=== PATIENT | male | born 1985 | race African-American/Black ===

== ENCOUNTER 2021-06-30 09:10 | Emergency (ER) | payer OTHER ==
[~2021-06-30] VITALS: Ht 167.6 cm; Wt 51.3 kg
[2021-06-30 09:17] VITALS: BP 138/107
--- NOTE | 2021-06-30 09:33 | NUR ---
Patient came in to the er c/o "Cant eat/Bad Anxiety/losing weight/No appetite/Nausea/Urine problems used to smoke marijuana but stopped about 1wk ago because having all these". on room air, breathing evenly and unlabored. connected to the monitor adn pulse ox.kept comfortable, will continue to monitor accordingly.
--- NOTE | 2021-06-30 09:43 | NUR ---
urine collected and sent to lab.
[2021-06-30 10:22] LABS: BASOPHILS # (AUTO) 0.1 K/uL (0.0-0.2); BASOPHILS % (AUTO) 0.9 % (0.0-2.0); EOSINOPHILS % (AUTO) 3.3 % (0.0-6.0); HEMATOCRIT 48 % (39-51); HEMOGLOBIN 15.9 g/dL (13.5-17.5); LYMPHOCYTES # (AUTO) 1.5 K/uL (0.8-4.8); LYMPHOCYTES % (AUTO) 24.9 % (20.0-44.0); MEAN CORPUSCULAR HGB CONC 33 g/dl (31.0-36.0); MEAN CORPUSCULAR VOLUME 90 fL (80-96); MONOCYTES # (AUTO) 0.9 K/uL (0.1-1.30); NEUTROPHILS # (AUTO) 3.2 K/uL (1.8-8.9); NEUTROPHILS % (AUTO) 54.9 % (43.0-81.0); PLATELET COUNT (AUTO) 226 K/uL (150-450); RED BLOOD CELL COUNT(AUTO) 5.31 MIL/uL (4.5-6.0); WHITE BLOOD COUNT (AUTO) 5.8 K/uL (4.3-11.0)
[2021-06-30 10:28] LABS: CALCIUM, SERUM 9.4 mg/dL (8.5-10.1); POTASSIUM 4.8 mmol/L (3.5-5.1)
[2021-06-30 10:30] LABS: BILIRUBIN,URINE SMALL (NEGATIVE); COLOR,URINE YELLOW (YELLOW); LEUKOCYTE ESTERASE ,URINE Negative (NEGATIVE); NITRITE, URINE Negative (NEGATIVE); PH,URINE 5.5 (5.0-8.0); PROTEIN,URINE Negative (NEGATIVE); UGLUCOSE Negative (NEGATIVE); UROBILINOGEN,URINE 0.2 EU/dL (0.2)
[2021-06-30 10:34] LABS: ALBUMIN 4.1 g/dL (3.4-5.0); BILIRUBIN,DIRECT 0.1 mg/dL (0.0-0.2); BILIRUBIN,TOTAL 0.6 mg/dL (0.2-1.0); TOTAL PROTEIN, SERUM 8.2 g/dL (6.4-8.2)
[2021-06-30 10:50] LABS: BACTERIA,URINE Few /HPF (None Seen); RBC,URINE 0-2 /HPF (0-2); WBC,URINE 0-4 /HPF (0-3)
[2021-06-30 10:51] LABS: MUCUS,URINE Moderate /LPF (None Seen); SQUAMOUS EPITHELIAL CELL,UR Rare /HPF (None Seen)
--- NOTE | 2021-06-30 10:55 | NUR ---
Patient discharged to home in stable condition. Written and verbal after care instructions given. Patient verbalizes understanding of instruction.
== END 2021-06-30 10:55 | disposition home or self-care (01) ==
LOC: ER 09:18
DX: R11.2 Nausea with vomiting, unspecified (principal); R19.7 Diarrhea, unspecified
CPT/HCPCS: 36415; 80048-TC; 80076-TC; 81001; 83690-TC; 85025-TC; 87086-TC

== ENCOUNTER 2021-07-29 03:53 | Emergency (ER) | payer OTHER ==
[~2021-07-29] VITALS: Ht 167.6 cm; Wt 60.8 kg
[2021-07-29] MEDS ORDERED: LIDOCAINE 1%-EPI 1:100,000 20 ML VIAL ONE (04:01)
--- NOTE | 2021-07-29 04:04 | NUR ---
BIBSELF C/O LACERATION ON L EYEBROW. EDGES WELL APPROXIMATED. UPDATED TDAP ALL VITALS STABLE. MD WAS AT BEDSIDE FOR EVALUATION.
--- NOTE | 2021-07-29 04:26 | NUR ---
Patient discharged to home in stable condition. Written and verbal after care instructions given. Patient verbalizes understanding of instruction.
[2021-07-29 04:30] VITALS: BP 122/73
== END 2021-07-29 04:30 | disposition home or self-care (01) ==
LOC: ER 03:53
DX: S01.112A Laceration without foreign body of left eyelid and periocular area, initial encounter (principal); Y08.89XA Assault by other specified means, initial encounter; Y93.89 Activity, other specified; Y92.29 Other specified public building as the place of occurrence of the external cause; Y99.8 Other external cause status
CPT/HCPCS: 12011; 99282; J3490

== ENCOUNTER 2021-08-28 03:59 | Emergency (ER) | payer OTHER ==
[~2021-08-28] VITALS: Ht 170.2 cm; Wt 53.5 kg
--- NOTE | 2021-08-28 04:26 | NUR ---
pt came in c/o vomiting and nausea, pt placed on monitor,vss.
[2021-08-28 05:53] LABS: BASOPHILS % (AUTO) 0.6 % (0.0-2.0); HEMATOCRIT 45 % (39-51); HEMOGLOBIN 15.3 g/dL (13.5-17.5); LYMPHOCYTES # (AUTO) 1.8 K/uL (0.8-4.8); LYMPHOCYTES % (AUTO) 22.7 % (20.0-44.0); MEAN CORPUSCULAR HGB CONC 34 g/dl (31.0-36.0); MEAN CORPUSCULAR VOLUME 91 fL (80-96); MONOCYTES # (AUTO) 1.3 K/uL (0.1-1.30); NEUTROPHILS # (AUTO) 4.4 K/uL (1.8-8.9); NEUTROPHILS % (AUTO) 55.7 % (43.0-81.0); PLATELET COUNT (AUTO) 248 K/uL (150-450); RED BLOOD CELL COUNT(AUTO) 4.95 MIL/uL (4.5-6.0); WHITE BLOOD COUNT (AUTO) 7.9 K/uL (4.3-11.0)
[2021-08-28 06:00] LABS: BILIRUBIN,URINE NEGATIVE (NEGATIVE); COLOR,URINE YELLOW (YELLOW); LEUKOCYTE ESTERASE ,URINE NEGATIVE (NEGATIVE); NITRITE, URINE NEGATIVE (NEGATIVE); PROTEIN,URINE NEGATIVE (NEGATIVE); UGLUCOSE NEGATIVE (NEGATIVE); UROBILINOGEN,URINE 0.2 EU/dL (0.2)
[2021-08-28 06:01] LABS: CALCIUM, SERUM 9.1 mg/dL (8.5-10.1); POTASSIUM 4.6 mmol/L (3.5-5.1)
[2021-08-28 06:08] LABS: ALBUMIN 3.8 g/dL (3.4-5.0); BILIRUBIN,DIRECT 0.1 mg/dL (0.0-0.2); BILIRUBIN,TOTAL 0.5 mg/dL (0.2-1.0); TOTAL PROTEIN, SERUM 7.8 g/dL (6.4-8.2)
[2021-08-28] MEDS ORDERED: ONDANSETRON HCL/PF 4 MG/2 ML VIAL ONE (06:28)
[2021-08-28] MEDS ORDERED: IV NS 0.9% 1,000 ML BAG IV ONE (06:30)
[2021-08-28] MEDS ORDERED: ONDANSETRON HCL/PF - ER 4 MG/2 ML VIAL IV ONE (06:30)
--- NOTE | 2021-08-28 07:21 | NUR ---
ASSESSED PT ON BED AWAKE AND ALERT, NOT IN RESPIRATORY DISTRESS, V/S STABLE, KEPT RESTED AND COMFORTABLE. WILL CONTINUE TO MONITOR.
[2021-08-28] MEDS ORDERED: ONDA4TAB5 PO (08:10)
--- NOTE | 2021-08-28 08:15 | NUR ---
IV removed. Catheter intact and site benign. Pressure and 4x4 applied to site. No bleeding noted.
--- NOTE | 2021-08-28 08:15 | NUR ---
Patient discharged to home in stable condition. Written and verbal after care instructions given. Patient verbalizes understanding of instruction.
[2021-08-28 08:25] VITALS: BP 126/64
[2021-08-28 08:59] LABS: BAND % (MANUAL) 1 % (0.0-5.0); EOSINOPHILS % (MANUAL) 5 % (0-4); LYMPHOCYTES % (MANUAL) 22 % (16-48); MONOCYTES % (MANUAL) 13 % (0-11.0); NEUTROPHILS % (MANUAL) 59 (42-76)
== END 2021-08-28 08:17 | disposition home or self-care (01) ==
LOC: ER 04:00
DX: B34.9 Viral infection, unspecified (principal); R11.2 Nausea with vomiting, unspecified; Z20.822 Contact with and (suspected) exposure to COVID-19; Z82.49 Family history of ischemic heart disease and other diseases of the circulatory system; Z88.0 Allergy status to penicillin
CPT/HCPCS: 36415; 71045; 80048; 80076; 81003; 83690; 85007; 85025; 87426; 96361; 96374; 99285; C9803; J2405; J7030; U0003

== ENCOUNTER → 2021-09-23 | Emergency (ER) | payer OTHER ==
[~2021-09-23] VITALS: Ht 167.6 cm; Wt 54.4 kg
[~2021-09-23] MED LIST: ALBUTEROL FS 2.5 MG/0.5 ML VIAL.NEB ONE; AZIT250T13 PO; IOHEXOL-300 100 ML VIAL IV ONE; IV NS 0.9% 250 ML IV ONE; ONDA4TAB5 PO
[2021-09-23] MEDS: ALBUTEROL FS 2.5 MG/0.5 ML VIAL.NEB NEB ONE (02:39)
[2021-09-23 04:19] LABS: BASOPHILS % (AUTO) 0.4 % (0.0-2.0); EOSINOPHILS % (AUTO) 2.6 % (0.0-6.0); HEMATOCRIT 44 % (39-51); HEMOGLOBIN 14.8 g/dL (13.5-17.5); LYMPHOCYTES # (AUTO) 1.7 K/uL (0.8-4.8); MEAN CORPUSCULAR HGB CONC 34 g/dl (31.0-36.0); MEAN CORPUSCULAR VOLUME 92 fL (80-96); MONOCYTES # (AUTO) 1.4 K/uL (0.1-1.30); MONOCYTES % (AUTO) 18.1 % (2.0-12.0); NEUTROPHILS # (AUTO) 4.4 K/uL (1.8-8.9); NEUTROPHILS % (AUTO) 56.9 % (43.0-81.0); PLATELET COUNT (AUTO) 247 K/uL (150-450); RED BLOOD CELL COUNT(AUTO) 4.72 MIL/uL (4.5-6.0); WHITE BLOOD COUNT (AUTO) 7.7 K/uL (4.3-11.0)
[2021-09-23 05:01] LABS: ALBUMIN 3.8 g/dL (3.4-5.0); BILIRUBIN,TOTAL 0.4 mg/dL (0.2-1.0); CALCIUM, SERUM 9.5 mg/dL (8.5-10.1); POTASSIUM 3.3 mmol/L (3.5-5.1); TOTAL PROTEIN, SERUM 7.8 g/dL (6.4-8.2)
[2021-09-23 05:42] VITALS: BP 109/80
[2021-09-23 06:35] LABS: BAND % (MANUAL) 2 % (0.0-5.0); EOSINOPHILS % (MANUAL) 2 % (0-4); LYMPHOCYTES % (MANUAL) 24 % (16-48); MONOCYTES % (MANUAL) 12 % (0-11.0); NEUTROPHILS % (MANUAL) 60 (42-76)
== END | disposition home or self-care (01) ==
LOC: ER 01:51
DX: J12.9 Viral pneumonia, unspecified (principal); R59.0 Localized enlarged lymph nodes; Z88.0 Allergy status to penicillin
CPT/HCPCS: 36415; 71045-TC; 71260-TC; 80053-TC; 85025-TC; J7050; Q9967

== ENCOUNTER 2021-11-01 12:50 | Emergency (ER) | payer OTHER ==
[~2021-11-01] VITALS: Ht 167.6 cm; Wt 55.3 kg
[~2021-11-01 12:50] MED LIST changes: -ALBUTEROL FS 2.5 MG/0.5 ML VIAL.NEB ONE; -IOHEXOL-300 100 ML VIAL IV ONE; -IV NS 0.9% 250 ML IV ONE
--- NOTE | 2021-11-01 13:01 | NUR ---
BIBS C/O COUGH X 2 WEEKS. VITALS ARE WITHIN NORMAL LIMITS.
[2021-11-01] MEDS ORDERED: AZIT250T PO (14:04)
[2021-11-01] MEDS ORDERED: GUAI-671 PO (14:04)
--- NOTE | 2021-11-01 14:38 | NUR ---
Patient discharged to home in stable condition. Written and verbal after care instructions given. Patient verbalizes understanding of instruction.
[2021-11-01 15:22] VITALS: BP 112/71
== END 2021-11-01 15:23 | disposition home or self-care (01) ==
LOC: ER 13:15
DX: J20.9 Acute bronchitis, unspecified (principal); F17.200 Nicotine dependence, unspecified, uncomplicated; Z88.0 Allergy status to penicillin; Z79.810 Long term (current) use of selective estrogen receptor modulators (SERMs); Z79.899 Other long term (current) drug therapy
CPT/HCPCS: 71045-TC

== ENCOUNTER 2022-03-21 18:14 | Emergency (ER) | payer OTHER ==
[~2022-03-21] VITALS: Ht 167.6 cm; Wt 55.3 kg
[~2022-03-21 18:14] MED LIST changes: +AZIT250T PO; +GUAI-671 PO
--- NOTE | 2022-03-21 18:31 | NUR ---
BIBS C/O DIZZINESS AND HEADACHE X1MO WORST TODAY. TO ER BED 10, HOOKED TO MONITOR, CHANGED TO HOSP GOWN, WARM BLANKET PROVIDED. PATIENT AAO x 4. BREATHING EVEN AND UNLABORED. AWAITING MD MCKEON
--- NOTE | 2022-03-21 18:32 | NUR ---
DR POOL AT BEDSIDE
[2022-03-21 19:23] LABS: POTASSIUM 3.8 mmol/L (3.5-5.1)
--- NOTE | 2022-03-21 19:40 | NUR ---
REPORT GIVEN TO AGNIESZKA BEYER FOR FREDDY
[2022-03-21 20:01] LABS: BASOPHILS % (AUTO) 0.2 % (0.0-2.0); EOSINOPHILS % (AUTO) 2.2 % (0.0-6.0); HEMATOCRIT 45 % (39-51); HEMOGLOBIN 14.9 g/dL (13.5-17.5); LYMPHOCYTES # (AUTO) 1.1 K/uL (0.8-4.8); LYMPHOCYTES % (AUTO) 18.5 % (20.0-44.0); MEAN CORPUSCULAR HGB CONC 33 g/dl (31.0-36.0); MEAN CORPUSCULAR VOLUME 89 fL (80-96); MONOCYTES % (AUTO) 16.2 % (2.0-12.0); NEUTROPHILS # (AUTO) 3.9 K/uL (1.8-8.9); NEUTROPHILS % (AUTO) 62.9 % (43.0-81.0); PLATELET COUNT (AUTO) 246 K/uL (150-450); RED BLOOD CELL COUNT(AUTO) 5.04 MIL/uL (4.5-6.0); WHITE BLOOD COUNT (AUTO) 6.2 K/uL (4.3-11.0)
--- NOTE | 2022-03-21 21:04 | NUR ---
Patient discharged to home in stable condition. Written and verbal after care instructions given. Patient verbalizes understanding of instruction.
[2022-03-21 21:05] VITALS: BP 129/94
== END 2022-03-21 21:05 | disposition home or self-care (01) ==
LOC: ER 18:30
DX: R51.9 Headache, unspecified (principal); Z88.0 Allergy status to penicillin; Z79.899 Other long term (current) drug therapy
CPT/HCPCS: 36415; 70450-TC; 80048-TC; 85025-TC

== ENCOUNTER 2022-07-23 15:42 | Emergency (ER) | payer OTHER ==
[~2022-07-23] VITALS: Ht 182.9 cm; Wt 56.7 kg
[2022-07-23] MEDS ORDERED: AZIT250T13 PO (19:53)
[2022-07-23] MEDS ORDERED: GUAI5LIQ10 PO (21:15)
[2022-07-23] MEDS ORDERED: CARB15DR12 LEFT EAR (21:15)
--- NOTE | 2022-07-23 21:18 | NUR ---
Patient discharged to home in stable condition. Written and verbal after care instructions given. Patient verbalizes understanding of instruction.
[2022-07-23 21:19] VITALS: BP 131/70
== END 2022-07-23 21:19 | disposition home or self-care (01) ==
LOC: ER 15:42
DX: J18.8 Other pneumonia, unspecified organism (principal); H61.23 Impacted cerumen, bilateral; F17.200 Nicotine dependence, unspecified, uncomplicated; Z88.0 Allergy status to penicillin; Z79.899 Other long term (current) drug therapy
CPT/HCPCS: 71045-TC

== ENCOUNTER 2022-09-01 13:47 | Emergency (ER) | payer MEDICAID, OTHER ==
[~2022-09-01] VITALS: Ht 170.2 cm; Wt 56.7 kg
[~2022-09-01 13:47] MED LIST changes: +CARB15DR12 LEFT EAR; +GUAI5LIQ10 PO
--- NOTE | 2022-09-01 15:31 | NUR ---
TO ER BED 2, BIBS C/O ABDOMINAL PAIN X1WEEK, DIARRHEA, DENIES NAUSEA AND VOMITING, AAOX3, BREATHING EVEN AND NON LABORED, CONNECTED TO MONITOR
[2022-09-01 16:15] LABS: BASOPHILS % (AUTO) 0.1 % (0.0-2.0); EOSINOPHILS % (AUTO) 2.7 % (0.0-6.0); HEMATOCRIT 45 % (39-51); HEMOGLOBIN 15.3 g/dL (13.5-17.5); LYMPHOCYTES # (AUTO) 0.7 K/uL (0.8-4.8); LYMPHOCYTES % (AUTO) 14.4 % (20.0-44.0); MEAN CORPUSCULAR HGB CONC 34 g/dl (31.0-36.0); MEAN CORPUSCULAR VOLUME 90 fL (80-96); MONOCYTES % (AUTO) 20.3 % (2.0-12.0); NEUTROPHILS % (AUTO) 62.5 % (43.0-81.0); PLATELET COUNT (AUTO) 258 K/uL (150-450); RED BLOOD CELL COUNT(AUTO) 5.06 MIL/uL (4.5-6.0); WHITE BLOOD COUNT (AUTO) 4.8 K/uL (4.3-11.0)
[2022-09-01 16:23] LABS: BILIRUBIN,URINE NEGATIVE (NEGATIVE); COLOR,URINE YELLOW (YELLOW); LEUKOCYTE ESTERASE ,URINE NEGATIVE (NEGATIVE); NITRITE, URINE NEGATIVE (NEGATIVE); PH,URINE 7.5 (5.0-8.0); PROTEIN,URINE 1+ mg/dl (NEGATIVE); UGLUCOSE NEGATIVE (NEGATIVE)
[2022-09-01 16:36] LABS: ALBUMIN 3.6 g/dL (3.4-5.0); BILIRUBIN,DIRECT 0.1 mg/dL (0.0-0.2); BILIRUBIN,TOTAL 0.6 mg/dL (0.2-1.0); TOTAL PROTEIN, SERUM 8.1 g/dL (6.4-8.2)
[2022-09-01] MEDS: IV NS 0.9% 500 ML BAG IV ONE (16:50)
--- NOTE | 2022-09-01 16:51 | NUR ---
COVID AND FLU SWABS DONE AND SENT TO LAB
[2022-09-01 17:46] LABS: BACTERIA,URINE None seen /HPF (None Seen); RBC,URINE 0-2 /HPF (0-2); SQUAMOUS EPITHELIAL CELL,UR 0-2 /HPF (None Seen); URINE AMORPHOUS PHOSPHATES Moderate /HPF (None Seen); WBC,URINE 0-2 /HPF (0-3)
[2022-09-01] MEDS ORDERED: NAPR-1192 PO (18:34)
--- NOTE | 2022-09-01 18:48 | NUR ---
IV removed. Catheter intact and site benign. Pressure and 4x4 applied to site. No bleeding noted.Patient discharged to home in stable condition. Written and verbal after care instructions given. Patient verbalizes understanding of instruction.
[2022-09-01 18:50] VITALS: BP 132/84
[2022-09-01 19:56] LABS: BAND % (MANUAL) 1 % (0.0-5.0); EOSINOPHILS % (MANUAL) 2 % (0-4); LYMPHOCYTES % (MANUAL) 17 % (16-48); MONOCYTES % (MANUAL) 13 % (0-11.0); NEUTROPHILS % (MANUAL) 66 (42-76); REACTIVE LYMPHOCYTES 1 % (0-0)
== END 2022-09-01 18:51 | disposition home or self-care (01) ==
LOC: ER 13:47
DX: R10.9 Unspecified abdominal pain (principal); R07.89 Other chest pain; Z87.01 Personal history of pneumonia (recurrent); Z20.822 Contact with and (suspected) exposure to COVID-19; Z88.0 Allergy status to penicillin
CPT/HCPCS: 99285; 74176; 96360; 71045; 87426; 93005; 87804; 85025; 80048; 83605; 83690; 80076; 81001; 36415; 85007; J7040; C9803

== ENCOUNTER 2022-12-05 06:39 | Emergency (ER) | payer MEDICAID, OTHER ==
[~2022-12-05] VITALS: Ht 167.6 cm; Wt 59.0 kg
[~2022-12-05 06:39] MED LIST changes: +NAPR-1192 PO
--- NOTE | 2022-12-05 06:50 | NUR ---
PT BIBSELF C/O LLQ PAIN X 6 HOURS. PT AAOX4 BREATHING EVENLY AND UNLABORED. PT REPORTS DRINKING LAST NIGHT AND THEN THE "PAIN SUDDENLY HIT HIM". PT ATTACHED TO MONITOR AND POX. WILL CONTINUE TO MONITOR.
--- NOTE | 2022-12-05 06:51 | NUR ---
URINE COLLECTED AND SENT TO LAB
[2022-12-05] MEDS ORDERED: ONDANSETRON HCL/PF 4 MG/2 ML VIAL ONE (06:54)
[2022-12-05] MEDS ORDERED: MORPHINE SULFATE INJ 4 MG/ML DISP.SYRIN ONE (06:54)
--- NOTE | 2022-12-05 06:54 | NUR ---
PT TAKEN TO CT VIA DOC
[2022-12-05] MEDS ORDERED: MORPHINE SULFATE INJ 2 MG/ML DISP.SYRIN IV ONE (07:00)
[2022-12-05] MEDS ORDERED: IV NS 0.9% 1,000 ML BAG IV ONE (07:00)
[2022-12-05] MEDS ORDERED: ONDANSETRON HCL/PF 4 MG/2 ML VIAL IVP ONE (07:00)
--- NOTE | 2022-12-05 07:03 | NUR ---
PT RETURNED TO ER BED [address]
[2022-12-05] MEDS ORDERED: KETOROLAC TROMETHAMINE INJ 30 MG/ML VIAL ONE (07:33)
[2022-12-05 07:34] LABS: BASOPHILS % (AUTO) 0.5 % (0.0-2.0); EOSINOPHILS % (AUTO) 1.3 % (0.0-6.0); HEMATOCRIT 48 % (39-51); HEMOGLOBIN 15.9 g/dL (13.5-17.5); LYMPHOCYTES # (AUTO) 0.8 K/uL (0.8-4.8); LYMPHOCYTES % (AUTO) 21.4 % (20.0-44.0); MEAN CORPUSCULAR HGB CONC 33 g/dl (31.0-36.0); MEAN CORPUSCULAR VOLUME 91 fL (80-96); MONOCYTES # (AUTO) 0.5 K/uL (0.1-1.30); MONOCYTES % (AUTO) 13.2 % (2.0-12.0); NEUTROPHILS # (AUTO) 2.5 K/uL (1.8-8.9); NEUTROPHILS % (AUTO) 63.6 % (43.0-81.0); PLATELET COUNT (AUTO) 225 K/uL (150-450); RED BLOOD CELL COUNT(AUTO) 5.23 MIL/uL (4.5-6.0); WHITE BLOOD COUNT (AUTO) 3.9 K/uL (4.3-11.0)
[2022-12-05 08:00] LABS: BILIRUBIN,DIRECT 0.2 mg/dL (0.0-0.2); BILIRUBIN,TOTAL 0.6 mg/dL (0.2-1.0); CALCIUM, SERUM 8.8 mg/dL (8.5-10.1); POTASSIUM 3.6 mmol/L (3.5-5.1); TOTAL PROTEIN, SERUM 8.6 g/dL (6.4-8.2)
[2022-12-05] MEDS ORDERED: KETOROLAC TROMETHAMINE INJ 30 MG/ML VIAL IV ONE (08:00)
[2022-12-05] MEDS ORDERED: HYDROMORPHONE 1 MG/1 ML DISP.SYRIN ONE (08:14)
--- NOTE | 2022-12-05 08:20 | NUR ---
pt medicated as ordered. see emar.
[2022-12-05 08:22] LABS: BILIRUBIN,URINE 1+ (NEGATIVE); COLOR,URINE DARK YELLOW (YELLOW); LEUKOCYTE ESTERASE ,URINE NEGATIVE (NEGATIVE); NITRITE, URINE NEGATIVE (NEGATIVE); PROTEIN,URINE 1+ mg/dl (NEGATIVE); UGLUCOSE NEGATIVE (NEGATIVE); UROBILINOGEN,URINE 0.2 EU/dL (0.2)
[2022-12-05 08:29] LABS: BACTERIA,URINE None seen /HPF (None Seen); RBC,URINE 51-80 /HPF (0-2); WBC,URINE 0-2 /HPF (0-3)
[2022-12-05 08:30] LABS: SQUAMOUS EPITHELIAL CELL,UR None Seen /HPF (None Seen)
[2022-12-05] MEDS ORDERED: HYDROMORPHONE 1 MG/1 ML DISP.SYRIN IV ONE (08:30)
--- NOTE | 2022-12-05 08:35 | NUR ---
pt to radiology for ct chest via [facility].
[2022-12-05] MEDS ORDERED: HYDR-4209 PO (10:00)
[2022-12-05] MEDS ORDERED: IBUP-1955 PO (10:00)
[2022-12-05] MEDS ORDERED: TAMS-12 PO (10:00)
[2022-12-05 10:15] VITALS: BP 132/74
== END 2022-12-05 10:15 | disposition home or self-care (01) ==
LOC: ER 06:43
DX: N23 Unspecified renal colic (principal); F17.200 Nicotine dependence, unspecified, uncomplicated; R91.1 Solitary pulmonary nodule; R59.0 Localized enlarged lymph nodes; Z79.899 Other long term (current) drug therapy; Z20.822 Contact with and (suspected) exposure to COVID-19; Z88.0 Allergy status to penicillin
CPT/HCPCS: 99285; 71250; 96374; 96375; 96361; 87426; 74176; 85025; 80048; 83690; 80076; 81001; 36415; J2270; J1885; J2405; J7030 ×2; J1170; C9803

== ENCOUNTER 2022-12-17 02:28 | Emergency (ER) | payer MEDICAID, OTHER ==
[~2022-12-17] VITALS: Ht 167.6 cm; Wt 61.2 kg
[~2022-12-17 02:28] MED LIST changes: +HYDR-4209 PO; +IBUP-1955 PO; +TAMS-12 PO
--- NOTE | 2022-12-17 02:30 | NUR ---
Pt is noted in bed alert, rersponsive as he came from Home C/O LLQ Abdominal pain and history off Kidney Stone since 12/05/22. Pt care continue with MD at bedside as awaits orders.
--- NOTE | 2022-12-17 02:47 | NUR ---
URINE COLLECTED AND SENT TO LAB
[2022-12-17] MEDS ORDERED: KETOROLAC TROMETHAMINE INJ 30 MG/ML VIAL IV ONE ×2 (03:00→04:30)
[2022-12-17] MEDS ORDERED: IV NS 0.9% 1,000 ML BAG IV ONE (03:00)
--- NOTE | 2022-12-17 03:00 | NUR ---
Pt care continue as LAB work done and started on IVF 0.9NS and Ketoral 30MG IVP given for pain . Pt care continue as pain will be reassessed for effectiveness.
--- NOTE | 2022-12-17 03:13 | NUR ---
ADDENDUM: Intravenous End Time Documentation: Normal saline 1 liter (IV-WO) : start time: 312 ; end time: 412 : IV site: [facility] PIV # 20 Port # 1
[2022-12-17] MEDS ORDERED: KETOROLAC TROMETHAMINE INJ 30 MG/ML VIAL ONE (03:15)
--- NOTE | 2022-12-17 03:23 | NUR ---
US TECH AT PT'S BEDSIDE
[2022-12-17 03:46] LABS: BASOPHILS % (AUTO) 0.2 % (0.0-2.0); EOSINOPHILS % (AUTO) 3.7 % (0.0-6.0); HEMATOCRIT 43 % (39-51); LYMPHOCYTES # (AUTO) 0.9 K/uL (0.8-4.8); LYMPHOCYTES % (AUTO) 13.1 % (20.0-44.0); MEAN CORPUSCULAR HGB CONC 33 g/dl (31.0-36.0); MEAN CORPUSCULAR VOLUME 91 fL (80-96); MONOCYTES % (AUTO) 14.2 % (2.0-12.0); NEUTROPHILS # (AUTO) 4.7 K/uL (1.8-8.9); NEUTROPHILS % (AUTO) 68.8 % (43.0-81.0); PLATELET COUNT (AUTO) 228 K/uL (150-450); RED BLOOD CELL COUNT(AUTO) 4.68 MIL/uL (4.5-6.0); WHITE BLOOD COUNT (AUTO) 6.9 K/uL (4.3-11.0)
[2022-12-17 03:52] LABS: BILIRUBIN,URINE NEGATIVE (NEGATIVE); COLOR,URINE YELLOW (YELLOW); LEUKOCYTE ESTERASE ,URINE NEGATIVE (NEGATIVE); NITRITE, URINE NEGATIVE (NEGATIVE); PROTEIN,URINE NEGATIVE (NEGATIVE); UGLUCOSE NEGATIVE (NEGATIVE); UROBILINOGEN,URINE 0.2 EU/dL (0.2)
[2022-12-17 03:54] LABS: BACTERIA,URINE Rare /HPF (None Seen); RBC,URINE 0-2 /HPF (0-2); SQUAMOUS EPITHELIAL CELL,UR Few /HPF (None Seen); WBC,URINE 0-2 /HPF (0-3)
[2022-12-17 03:55] LABS: CALCIUM, SERUM 9.2 mg/dL (8.5-10.1); CREATININE 0.9 mg/dL (0.6-1.3); POTASSIUM 3.1 mmol/L (3.5-5.1)
[2022-12-17] MEDS ORDERED: POTASSIUM CHLORIDE 20 MEQ TAB.PRT.SR PO ONE ×2 (04:00→04:18)
[2022-12-17 04:01] LABS: ALBUMIN 3.4 g/dL (3.4-5.0); BILIRUBIN,DIRECT 0.2 mg/dL (0.0-0.2); BILIRUBIN,TOTAL 0.4 mg/dL (0.2-1.0); TOTAL PROTEIN, SERUM 7.5 g/dL (6.4-8.2)
[2022-12-17] MEDS ORDERED: HYDR-3980 PO (04:22)
[2022-12-17 04:23] VITALS: BP 144/93
--- NOTE | 2022-12-17 04:39 | NUR ---
Patient discharged to home in stable condition. Written and verbal after care instructions given. Patient verbalizes understanding of instruction.
== END 2022-12-17 04:00 | disposition home or self-care (01) ==
LOC: ER 02:30
DX: N20.0 Calculus of kidney (principal); Z87.440 Personal history of urinary (tract) infections; Z88.0 Allergy status to penicillin; Z79.899 Other long term (current) drug therapy
CPT/HCPCS: 99285; 96374; 76770; 96361; 96376; 85025; 80048; 83690; 80076; 81001; 36415; J1885 ×2; J7030

== ENCOUNTER 2023-01-21 04:16 | Emergency (ER) | payer MEDICAID ==
[~2023-01-21] VITALS: Ht 167.6 cm; Wt 59.9 kg
[~2023-01-21 04:16] MED LIST changes: +HYDR-3980 PO
[2023-01-21 06:45] VITALS: BP 128/91
[2023-01-21] MEDS ORDERED: DOXYCYCLINE HYCLATE (100 MG) 100 MG TABLET PO ONE (07:00)
[2023-01-21] MEDS ORDERED: CEFTRIAXONE 500 MG VIAL IM ONE (07:00)
[2023-01-21] MEDS ORDERED: CEFTRIAXONE 500 MG VIAL ONE (07:07)
[2023-01-21] MEDS ORDERED: LIDOCAINE /MPF 1% VIAL 5 ML VIAL ONE (07:07)
[2023-01-21] MEDS ORDERED: DOXYCYCLINE HYCLATE (100 MG) 100 MG TABLET ONE (07:08)
[2023-01-21] MEDS ORDERED: DOXY100T2 PO (07:13)
[2023-01-21 07:59] LABS: BILIRUBIN,URINE NEGATIVE (NEGATIVE); COLOR,URINE YELLOW (YELLOW); LEUKOCYTE ESTERASE ,URINE NEGATIVE (NEGATIVE); NITRITE, URINE NEGATIVE (NEGATIVE); PH,URINE 6.5 (5.0-8.0); PROTEIN,URINE NEGATIVE (NEGATIVE); UGLUCOSE NEGATIVE (NEGATIVE); UROBILINOGEN,URINE 0.2 EU/dL (0.2)
== END 2023-01-21 07:20 | disposition home or self-care (01) ==
LOC: ER 04:21
DX: A64 Unspecified sexually transmitted disease (principal); J40 Bronchitis, not specified as acute or chronic; F17.200 Nicotine dependence, unspecified, uncomplicated; Z79.899 Other long term (current) drug therapy; Z88.0 Allergy status to penicillin
CPT/HCPCS: 99283; 96372; 81003; 87491; 87591; J0696; J3490

== ENCOUNTER 2023-01-25 02:41 | Emergency (ER) | payer MEDICAID ==
[~2023-01-25] VITALS: Ht 167.6 cm; Wt 56.7 kg
[~2023-01-25 02:41] MED LIST changes: +DOXY100T2 PO
[2023-01-25 04:19] VITALS: BP 130/67
--- NOTE | 2023-01-25 04:19 | NUR ---
BIBS FROM HOME, CC OF PAIN AND REDNESS OF EYES. PATIENT STATED THAT IT STARTED 2 1/2 WEEKS AGO WHEN HE FORGOT TO REMOVE HIS CONTACTS. SAW AN OPTHALMOLOGIST AND PRESCRIBED WITH EYE MEDICATIONS WHICH HE HAVENT BEEN USING BECAUSE HE WAS SO BUSY. 3 DAYS AGO, THE EYE PAIN BECOME MORE INTENSE THAT HE STARTED USING THE ANTIBIOTIC DROPS THAT HIS MD PRESCRIBED HIM. NOW PAIN IS 5/10 AND HE FELT LIKE IT WAS NOT HELPING THATS WHY HE DECIDED TO COME FOR CONSULT. PATIENT IS AAOX4, ABLE TO MAKE NEEDS KNOWN. VITALS CHECKED
--- NOTE | 2023-01-25 04:29 | NUR ---
Patient discharged to home in stable condition. Written and verbal after care instructions given. Patient verbalizes understanding of instruction.
== END 2023-01-25 04:31 | disposition home or self-care (01) ==
LOC: ER 02:43
DX: H10.9 Unspecified conjunctivitis (principal); J40 Bronchitis, not specified as acute or chronic; F17.200 Nicotine dependence, unspecified, uncomplicated; Z87.442 Personal history of urinary calculi; Z88.0 Allergy status to penicillin

== ENCOUNTER 2023-10-01 15:30 | Emergency (ER) | payer MEDICAID, OTHER ==
[~2023-10-01] VITALS: Ht 167.6 cm; Wt 61.2 kg
[2023-10-01] MEDS ORDERED: IV NS 0.9% 1,000 ML BAG IV ONE (16:30)
[2023-10-01] MEDS ORDERED: ONDANSETRON HCL/PF 4 MG/2 ML VIAL IVP ONE (16:30)
[2023-10-01 17:02] LABS: BASOPHILS % (AUTO) 0.1 % (0.0-2.0); EOSINOPHILS # (AUTO) 0.1 K/uL (0.0-0.7); EOSINOPHILS % (AUTO) 1.9 % (0.0-6.0); HEMATOCRIT 45 % (39-51); HEMOGLOBIN 14.9 g/dL (13.5-17.5); LYMPHOCYTES % (AUTO) 18.8 % (20.0-44.0); MEAN CORPUSCULAR HEMOGLOBIN 30 PG (26.0-33.0); MEAN CORPUSCULAR HGB CONC 33 g/dl (31.0-36.0); MEAN CORPUSCULAR VOLUME 92 fL (80-96); MONOCYTES # (AUTO) 0.9 K/uL (0.1-1.30); MONOCYTES % (AUTO) 15.9 % (2.0-12.0); NEUTROPHILS # (AUTO) 3.4 K/uL (1.8-8.9); NEUTROPHILS % (AUTO) 63.3 % (43.0-81.0); PLATELET COUNT (AUTO) 230 K/uL (150-450); RED BLOOD CELL COUNT(AUTO) 4.93 MIL/uL (4.5-6.0); RED CELL DISTRIBUTION WIDTH 15.1 % (11.5-15.0); WHITE BLOOD COUNT (AUTO) 5.4 K/uL (4.3-11.0)
[2023-10-01] MEDS ORDERED: ONDANSETRON HCL/PF 4 MG/2 ML VIAL ONE (17:07)
[2023-10-01 17:18] LABS: CALCIUM, SERUM 9.6 mg/dL (8.5-10.1); CREATININE 1.1 mg/dL (0.6-1.3); POTASSIUM 3.6 mmol/L (3.5-5.1)
[2023-10-01 17:25] LABS: ALBUMIN 3.9 g/dL (3.4-5.0); BILIRUBIN,DIRECT 0.1 mg/dL (0.0-0.2); BILIRUBIN,TOTAL 0.5 mg/dL (0.2-1.0); TOTAL PROTEIN, SERUM 8.4 g/dL (6.4-8.2)
[2023-10-01] MEDS ORDERED: TAMS-12 PO (17:42)
[2023-10-01 18:17] VITALS: BP 108/68; TEMP 98; O2SAT 98
[2023-10-01 19:34] LABS: EOSINOPHILS % (MANUAL) 1 % (0-4); LYMPHOCYTES % (MANUAL) 20 % (16-48); MONOCYTES % (MANUAL) 23 % (0-11.0); NEUTROPHILS % (MANUAL) 56 (42-76); PLATELET ESTIMATE ADEQUATE
== END 2023-10-01 18:18 | disposition home or self-care (01) ==
LOC: ER 15:53
DX: N20.0 Calculus of kidney (principal); R11.2 Nausea with vomiting, unspecified; F17.200 Nicotine dependence, unspecified, uncomplicated; Z88.0 Allergy status to penicillin; Z79.899 Other long term (current) drug therapy
CPT/HCPCS: 99285; 74176; 96374; 96361; 85025; 80048; 83690; 80076; 36415; 85007; J2405; J7030

== ENCOUNTER 2024-02-19 00:31 | Emergency (ER) | payer OTHER ==
[~2024-02-19] VITALS: Ht 167.6 cm; Wt 59.0 kg
[2024-02-19 02:04] VITALS: TEMP 98.2
[2024-02-19] MEDS ORDERED: KETOROLAC TROMETHAMINE INJ 30 MG/ML VIAL ONE (02:29)
[2024-02-19] MEDS: KETOROLAC TROMETHAMINE INJ 30 MG/ML VIAL IM ONE (02:34)
[2024-02-19 02:56] LABS: BASOPHILS % (AUTO) 0.3 % (0.0-2.0); EOSINOPHILS # (AUTO) 0.2 K/uL (0.0-0.7); EOSINOPHILS % (AUTO) 2.3 % (0.0-6.0); HEMATOCRIT 43 % (39-51); HEMOGLOBIN 14.6 g/dL (13.5-17.5); LYMPHOCYTES # (AUTO) 1.4 K/uL (0.8-4.8); LYMPHOCYTES % (AUTO) 18.4 % (20.0-44.0); MEAN CORPUSCULAR HEMOGLOBIN 31 PG (26.0-33.0); MEAN CORPUSCULAR HGB CONC 34 g/dl (31.0-36.0); MEAN CORPUSCULAR VOLUME 91 fL (80-96); MONOCYTES # (AUTO) 1.4 K/uL (0.1-1.30); MONOCYTES % (AUTO) 18.5 % (2.0-12.0); NEUTROPHILS # (AUTO) 4.6 K/uL (1.8-8.9); NEUTROPHILS % (AUTO) 60.5 % (43.0-81.0); PLATELET COUNT (AUTO) 216 K/uL (150-450); RED BLOOD CELL COUNT(AUTO) 4.77 MIL/uL (4.5-6.0); RED CELL DISTRIBUTION WIDTH 14.4 % (11.5-15.0); WHITE BLOOD COUNT (AUTO) 7.7 K/uL (4.3-11.0)
[2024-02-19 03:07] LABS: CARBON DIOXIDE 27 mmol/L (21-32); CHLORIDE 103 mmol/L (98-107); CREATININE 1.1 mg/dL (0.6-1.3); GLUCOSE 91 mg/dL (74-106); POTASSIUM 3.6 mmol/L (3.5-5.1); SODIUM SERUM 136 mmol/L (136-145); UREA NITROGEN, BLOOD 18 mg/dL (7-18)
[2024-02-19 04:35] VITALS: BP 108/76; O2SAT 98
== END 2024-02-19 04:36 | disposition home or self-care (01) ==
LOC: ER 00:34
DX: R07.89 Other chest pain (principal); R05.9 Cough, unspecified; F17.200 Nicotine dependence, unspecified, uncomplicated; Z87.09 Personal history of other diseases of the respiratory system; Z87.442 Personal history of urinary calculi; Z88.0 Allergy status to penicillin; Z60.2 Problems related to living alone
CPT/HCPCS: 99285; 96372; 93005; 71100; 85025; 80048; 36415; 84484; J1885

== ENCOUNTER 2024-05-11 13:38 | Emergency (ER) | payer MEDICAID ==
[~2024-05-11] VITALS: Ht 170.2 cm; Wt 61.2 kg
[2024-05-11 13:57] VITALS: BP 138/88; TEMP 98.2; O2SAT 98
[2024-05-11] MEDS: IBUPROFEN 600 MG TABLET PO ONE (14:26)
[2024-05-11] MEDS ORDERED: IBUPROFEN 600 MG TABLET ONE (14:26)
[2024-05-11] MEDS ORDERED: IBUP-1955 PO (16:31)
[2024-05-11] MEDS ORDERED: ACET-2605 PO (16:31)
== END 2024-05-11 16:40 | disposition home or self-care (01) ==
LOC: ER 13:39
DX: R07.81 Pleurodynia (principal); F17.200 Nicotine dependence, unspecified, uncomplicated; Z87.09 Personal history of other diseases of the respiratory system; Z87.442 Personal history of urinary calculi; Z88.0 Allergy status to penicillin; Z60.2 Problems related to living alone; W51.XXXA Accidental striking against or bumped into by another person, initial encounter; Y93.71 Activity, boxing; Y92.89 Other specified places as the place of occurrence of the external cause; Y99.8 Other external cause status
CPT/HCPCS: 71100-TC

== ENCOUNTER 2024-07-30 02:03 | Emergency (ER) | payer MEDICAID ==
[~2024-07-30] VITALS: Ht 167.6 cm; Wt 61.2 kg
[~2024-07-30 02:03] MED LIST changes: +ACET-2605 PO
[2024-07-30 03:28] VITALS: BP 129/66; TEMP 98.5
[2024-07-30 04:01] VITALS: O2SAT 98
== END 2024-07-30 04:09 | disposition home or self-care (01) ==
LOC: ER 02:07
DX: S60.442A External constriction of right middle finger, initial encounter (principal); F17.290 Nicotine dependence, other tobacco product, uncomplicated; Z79.1 Long term (current) use of non-steroidal anti-inflammatories (NSAID); Z88.0 Allergy status to penicillin; Z87.09 Personal history of other diseases of the respiratory system; Z87.442 Personal history of urinary calculi; Z60.2 Problems related to living alone; W49.04XA Ring or other jewelry causing external constriction, initial encounter; Y93.89 Activity, other specified; Y92.098 Other place in other non-institutional residence as the place of occurrence of the external cause; Y99.8 Other external cause status